=== PATIENT | female | born 2005 | race Caucasian/White ===

== ENCOUNTER 2025-06-06 10:52 | Outpatient (CLI) | payer OTHER, SELFPAY ==
[2025-06-09 09:36] LABS: Pap Test Digital Imaging Done
== END 2025-06-06 10:53 | disposition home or self-care (01) ==
LOC: NFLDREF 10:53
PROVIDERS: Visit Provider Physician Assistant
DX: Z12.4 Encounter for screening for malignant neoplasm of cervix (principal)
CPT/HCPCS: 87624; 87625; 88141; 88142; 88175

== ENCOUNTER 2025-07-13 09:40 | Outpatient (CLI) | payer OTHER, SELFPAY | END 2025-07-13 09:41 | disposition home or self-care (01) | PROVIDERS: Visit Provider Physician Assistant | DX: L68.0 Hirsutism (principal); L70.9 Acne, unspecified | CPT/HCPCS: 82627; 83498; 84146; 84270; 84402; 84403; 84443 ==